=== PATIENT | female | born 1955 | race Caucasian/White ===

== ENCOUNTER → 2018-10-03 11:30 | Outpatient (CLI) | payer MEDICAID ==
[2013-03-13 10:57] VITALS: BMI 24.8
[~2018-10-03 11:30] MED LIST: ATIVAN0.5 MG PO; BISCOLAX10 MG/SUPP RC; CARDIZEM120 MG PO; KEPPRA1000 MG PO; LEVOTHROID100 MCG PO; LEXAPRO10 MG PO; LISINOPRIL10 MG PO; LISINOPRIL2.5 MG PO; PHENOBARBITAL97.2 MG PO; PREDNISONE10 MG PO; PREDNISONE20 MG PO; SYNTHROID100 MCG PO; TEGRETOL XR100 MG PO; VITAMIN B-121000 MC3 PO; ZOCOR20 MG PO
== END | disposition home or self-care (01) ==
LOC: D.CT 11:30
PROVIDERS: ATTEND Legal Medicine
DX: J84.9 Interstitial pulmonary disease, unspecified (principal); R93.89 Abnormal findings on diagnostic imaging of other specified body structures